=== PATIENT | male | born 1955 | race African-American/Black ===

== ENCOUNTER 2018-04-25 22:14 | Emergency (ER) | payer MEDICARE, MEDICAID ==
[~2018-04-25] VITALS: Ht 188 cm; Wt 109.8 kg
[~2018-04-25 22:14] MED LIST: VICODIN 5-5001 EACH PO; XANAX2 MG ORAL
[2018-04-25 22:35] VITALS: BP 152/94
--- NOTE | 2018-04-25 22:35 | NUR ---
ED Nurse Note: Patient presents to ED c/o lower back pain and bilateral leg pain for 2x days.
[2018-04-25] MEDS ORDERED: TRAZODONE HCL150 MG ORAL (22:38)
[2018-04-25] MEDS ORDERED: SEROQUEL300 MG ORAL (22:38)
[2018-04-25] MEDS ORDERED: ROXYBOND30 MG PO (22:38)
[2018-04-25] MEDS ORDERED: TRAMADOL HCL50 MG ORAL (22:38)
[2018-04-25] MEDS ORDERED: GABAPENTIN400 MG ORAL (23:05)
--- NOTE | 2018-04-25 23:06 | Emergency Room Report ---
History of Present Illness General Chief Complaint: Lower Back Pain or Injury Source: Patient Present Illness HPI Is a 62-year-old male with a history of chronic back pain and also history of anxiety. He presents with chief complaint of having anxiety and back pain. He said is out of his pain medication. He said he see a Dr. he get oxycodone, gabapentin and tramadol. He's been out for the last few days. Denies any fever chills. Denies any nausea vomiting. Pain is 10 out of 10. No radiation. No trauma. No incontinence of bowel or urine. No suicidal thoughts or homicidal thought. Allergies: Coded Allergies: HALOPERIDOL (Verified Allergy, Intermediate, Hives, 07/13/12) HALOPERIDOL LACTATE (Verified Allergy, Intermediate, Hives, 07/13/12) IBUPROFEN (Verified Allergy, Intermediate, Hives, 07/13/12) KETOROLAC TROMETHAMINE (Verified Allergy, Intermediate, Hives, 07/13/12) Patient History Past Medical History: see triage record, old chart reviewed Past Surgical History: other Pertinent Family History: none Social History: Denies: smoking Immunizations: other Reviewed Nursing Documentation: PMH: Agreed; PSxH: Agreed Nursing Documentation-PMH Past Medical History: No History, Except For Hx Gastrointestinal Problems: No - spinal stenosis, degenerative disc disease, arthritis, neuropathy History Of Psychiatric Problem: Yes - schizophrenia Review of Systems Eye: Denies: eye pain, blurred vision ENT: Denies: ear pain, nose congestion, throat swelling Respiratory: Denies: cough, shortness of breath Cardiovascular: Denies: chest pain, palpitations Gastrointestinal: Denies: abdominal pain, diarrhea, nausea, vomiting Musculoskeletal: Reports: back pain; Denies: joint pain Skin: Denies: rash Neurological: Denies: headache, numbness Endocrine: Denies: increased thirst, increased urine Hematologic/Lymphatic: Denies: easy bruising All Other Systems: negative except mentioned in HPI Physical Exam Vital Signs Date Time Temp Pulse Resp B/P (MAP) Pulse Ox O2 Delivery O2 Flow Rate FiO2 04/25/18 22:33 98.4 79 16 152/94 96 Room Air vitals with high blood pressure Sp02 EP Interpretation: reviewed, normal General Appearance: well appearing, no apparent distress, alert Head: normocephalic, atraumatic Eyes: bilateral eye PERRL, bilateral eye EOMI ENT: hearing grossly normal, normal pharynx Neck: full range of motion, supple, no meningismus Respiratory: chest non-tender, lungs clear, normal breath sounds Cardiovascular #1: regular rate, rhythm, no murmur Gastrointestinal: normal bowel sounds, non tender, no mass, no organomegaly, no bruit, non-distended Musculoskeletal: back normal - Lower back pain, normal range of motion, other - Patient walks with a cane Neurologic: alert, oriented x3 Psychiatric: mood/affect normal Skin: warm/dry Medical Decision Making Diagnostic Impression: Primary Impression: Low back pain Qualified Codes: M54.5 - Low back pain Additional Impression: Opioid dependence Qualified Codes: F11.20 - Opioid dependence, uncomplicated ER Course Patient with exacerbation of chronic back pain. He claimed he is on Ultram but I do not see it on the [employer] system. On the [employer] system, he received [place] [address] on April 19 in [place]. Before that he received oxycodone 5 mg #30 and oxycodone 5 mg #30 on April 15. He also received the same thing on March 30. He should have plenty until he sees on the . We'll discharge home. No evidence of cauda equina syndrome, spinal epidural abscess or neoplastic process. No criteria for 5150. Last Vital Signs Date Time Temp Pulse Resp B/P (MAP) Pulse Ox O2 Delivery O2 Flow Rate FiO2 04/25/18 22:33 98.4 79 16 152/94 96 Room Air Status: unchanged Disposition: HOME, SELF-CARE Condition: Stable Scripts Gabapentin* (GABAPENTIN*) 400 Mg Capsule 400 MG ORAL THREE TIMES A DAY, #21 CAP 0 Refills Prov: Daniel Faust MD 04/25/18 Patient Instructions: Back Pain, Adult Additional Instructions: Follow-up with your DrElida for refills on her medication. Return if symptom worsen. Daniel Faust MD Apr 25, 2018 23:06
[2018-04-25 23:10] VITALS: BP 115/75
--- NOTE | 2018-04-25 23:10 | NUR ---
ED Nurse Note: pt was cleared for discharge by [facility]. discharge instruction and presction explained and pt able to verbalize understanding. pt aox4. vss. id band removed. pt able to walk with steady gait. pt left the ed with all belongings
[2018-04-25] MEDS ORDERED: Acetaminophen 500mg (ES) tab ORAL ONE (23:15)
== END 2018-04-25 23:10 | disposition home or self-care (01) ==
LOC: EMR 23:00
DX: M54.5 Low back pain (principal); G89.29 Other chronic pain; F11.20 Opioid dependence, uncomplicated; F41.9 Anxiety disorder, unspecified; Z88.8 Allergy status to other drugs, medicaments and biological substances; F20.9 Schizophrenia, unspecified; G62.9 Polyneuropathy, unspecified; M19.90 Unspecified osteoarthritis, unspecified site
CPT/HCPCS: 99282

== ENCOUNTER 2018-12-03 21:26 | Emergency (ER) | payer MEDICARE, MEDICAID ==
[~2018-12-03] VITALS: Ht 188 cm; Wt 113.9 kg
[~2018-12-03 21:26] MED LIST changes: +GABAPENTIN400 MG ORAL; +ROXYBOND30 MG PO; +SEROQUEL300 MG ORAL; +TRAMADOL HCL50 MG ORAL; +TRAZODONE HCL150 MG ORAL
[2018-12-03] MEDS ORDERED: HYDROcodone/Acetamin 5/325 tab ORAL ONE (21:45)
[2018-12-03] MEDS ORDERED: Ketorolac 60mg Inj IM ONE (21:45)
--- NOTE | 2018-12-03 21:50 | NUR ---
ED Nurse Note: pt walked in c/o chronic low back pain. denies n/v/d, denies problem with urination, pt reports he gets chronic low back pain. will cont monitor. ambulatory w/ steady gait w/cane.
--- NOTE | 2018-12-03 21:50 | Emergency Room Report ---
History of Present Illness General Chief Complaint: Lower Back Pain or Injury Source: Patient Present Illness HPI Patient presents with increased lower back pain and hip pain. His chronic back pain and chronic hip pain. He ran out of oxycodone 2 to 3 days ago. He feels like he is having withdrawal from the opiates. Denies any fevers, chills, oncologic problems, incontinence or increased numbness or weakness. He does have chronic neuropathy and complains about chronic numbness in his lower extremities and more on the right-hand side because of sciatica. He is not on blood thinners at this time and denies any recent trauma. Regarding a possible opiate withdrawal, the patient denies sweats, vomiting, abdominal pain. He does feel anxious. The patient suffers from spinal stenosis, hypertension and COPD. Allergies: Coded Allergies: HALOPERIDOL (Verified Allergy, Intermediate, Hives, 07/13/12) HALOPERIDOL LACTATE (Verified Allergy, Intermediate, Hives, 07/13/12) IBUPROFEN (Verified Allergy, Intermediate, Hives, 07/13/12) KETOROLAC TROMETHAMINE (Verified Allergy, Intermediate, Hives, 07/13/12) Patient History Past Medical History: see triage record Social History: Reports: smoking Social History Narrative He drove himself here Reviewed Nursing Documentation: PMH: Agreed; PSxH: Agreed Nursing Documentation-PMH Hx Hypertension: Yes Hx COPD: Yes Hx Diabetes: Yes Hx Gastrointestinal Problems: No - spinal stenosis, degenerative disc disease, arthritis, neuropathy Review of Systems All Other Systems: negative except mentioned in HPI Physical Exam Vital Signs Date Time Temp Pulse Resp B/P (MAP) Pulse Ox O2 Delivery O2 Flow Rate FiO2 12/03/18 21:30 98.2 91 18 169/109 (129) 95 Room Air Sp02 EP Interpretation: reviewed, normal General Appearance: well appearing, no apparent distress, GCS 15 Head: normocephalic Eyes: bilateral eye normal inspection, bilateral eye PERRL ENT: moist mucus membranes Respiratory: lungs clear Cardiovascular #1: regular rate, rhythm, edema - trace pitting Cardiovascular #2: 2+ radial (R) Gastrointestinal: normal inspection, soft Musculoskeletal: no calf tenderness, tenderness - lumbar spine, no bony tenderness. Able to sit and stand without difficulty. Ambulates without difficulty. There is paraspinous muscle spasm bilaterally Neurologic: alert, motor strength/tone normal, DTRs symmetric, sensory deficit - Reported but feels touch Psychiatric: mood/affect normal Reflexes: 2+ knee (R), 2+ knee (L); 1+ ankle (R), 1+ ankle (L) Skin: no rash Medical Decision Making Diagnostic Impression: Primary Impression: Exacerbation of chronic back pain Additional Impression: Opiate dependence Qualified Codes: F11.29 - Opioid dependence with unspecified opioid-induced disorder ER Course Presents with worsened back and hip pain after running out of his usual opiates. Differential includes opiate withdrawal, exacerbation of pain, lack of pain control coverage amongst others. There are no red flag symptoms at this time. No lab studies need to be done. No imaging is indicated also. The shot of Toradol. He states he is not allergic to this. Also he be given a dose of [place]. Patient stable for outpatient observation and treatment. Of note -when the patient presented with his prescription for [place] to the pharmacy I was called. Apparently he feels Percocet No. 90 on November 21. Pharmacist was questioning whether to fill the [place] prescription. As the patient stated he was out of Percocet I advised the pharmacist to go ahead. It raises the question whether the patient was selling drugs or using more medication than prescribed. In the future this needs to be discussed with the patient. Last Vital Signs Date Time Temp Pulse Resp B/P (MAP) Pulse Ox O2 Delivery O2 Flow Rate FiO2 12/03/18 22:17 98.2 12/03/18 22:16 92 18 148/86 96 Room Air Status: improved Disposition: HOME, SELF-CARE Condition: Improved Scripts Methocarbamol* (ROBAXIN*) 500 Mg Tablet 500 MG PO TID, #10 TAB 0 Refills Prov: Angelito Costello MD 12/03/18 Naproxen* (NAPROSYN*) 250 Mg Tablet 500 MG ORAL TID, #20 TAB 0 Refills Prov: Angelito Costello MD 12/03/18 Hydrocodone Bit/Acetaminophen 5-325* (NORCO 5-325*) 1 Each Tablet 1 TAB ORAL Q6H PRN for For Pain, #10 TAB 0 Refills Prov: Angelito Costello MD 12/03/18 Angelito Costello MD Dec 03, 2018 21:50
[2018-12-03] MEDS ORDERED: NAPROXEN250 MG ORAL (22:10)
[2018-12-03] MEDS ORDERED: ROBAXIN500 MG PO (22:10)
[2018-12-03] MEDS ORDERED: NORCO 5-325 TA1 EACH ORAL (22:10)
[2018-12-03 22:13] VITALS: BP 148/86
--- NOTE | 2018-12-03 22:15 | NUR ---
ED Nurse Note: pt cleared to be d/c per [facility], pt discharge and aftercare instruction provided w/ prescription, pt education done via discussion and handout, pt advised to follow up with pcp or return to ed if changes in condition, vss, ambulatory w/ steay gait w/ cane, left w/ all belongings.
[2018-12-03 22:16] VITALS: BP 148/86
== END 2018-12-03 22:16 | disposition home or self-care (01) ==
LOC: EMR 21:58
DX: M54.5 Low back pain (principal); M25.559 Pain in unspecified hip; G89.29 Other chronic pain; F11.29 Opioid dependence with unspecified opioid-induced disorder; I10 Essential (primary) hypertension; J44.9 Chronic obstructive pulmonary disease, unspecified; M48.00 Spinal stenosis, site unspecified; M19.90 Unspecified osteoarthritis, unspecified site; E11.40 Type 2 diabetes mellitus with diabetic neuropathy, unspecified; F17.200 Nicotine dependence, unspecified, uncomplicated
CPT/HCPCS: 96372; 99283